=== PATIENT | female | born 1990 | race Caucasian/White ===

== ENCOUNTER 2016-06-18 20:47 | Emergency (ER) | payer OTHER ==
--- NOTE | 2016-06-18 22:44 | EDDOCDS ---
Physician Documentation [facility] Name: Adelia Webster Age: 25 yrs Sex: Female : 1990 Arrival Date: 06/18/2016 Time: 20:47 Bed U3 Private MD: Disposition: 06/18/16 22:08 Discharged to Home/Self Care. Impression: Acute stress reaction, Problems related to social environment. - Condition is Stable. - Medication Reconciliation, Local Pharmacy Hours form. - Follow up: Referral list, As provided by PFS; When: Call to arrange an appointment; Reason: Continuance of care. - Problem is an ongoing problem. - Symptoms have improved. Historical: - Allergies: No known drug Allergies; - Home Meds: 1. Wellbutrin Unknown Oral 1 tab 2 times per day 2. Zoloft Unknown Oral 1 tab twice a day - PMHx: Bipolar disorder; Anxiety; Depression; - PSHx: ; eye; - Social history: Smoking status: Patient uses tobacco products, heavy tobacco smoker. Patient uses street drugs, marijuana, No barriers to communication noted, The patient speaks fluent Iranian. - Family history: Not pertinent. - : The pt / caregiver states he / she is not on anticoagulants. Home medication list is obtained from the patient. - Exposure Risk Screening:: None identified. 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 2 in. (157.48 cm) (R); Pain 0/10; 22:40 BP 121 / 80; Pulse 104; Resp 20; Temp 97.8; Pulse Ox 100% ; Pain 0/10; mlc 20:55 Body Mass Index 21.95 (54.43 kg, 157.48 cm) rw1 MDM: 22:26 PSA Outpatient Referrals was scanned into [employer] and attached to record. eileen 22:26 [facility] Legal paperwork was scanned into [employer] and attached to record. eileen Signatures: Brock Spence DO DO cs11 Feliz Hooper RN RN jmb Macias,Margaret,RN RN mlc MTDD
--- NOTE | 2016-06-18 22:45 | EDDOCDS ---
Nurse's Notes [facility] Name: Adelia Webster Age: 25 yrs Sex: Female : 1990 Arrival Date: 06/18/2016 Time: 20:47 Bed [facility] Private MD: Diagnosis: Acute stress reaction;Problems related to social environment Presentation: 06/18 20:57 Presenting complaint: Patient states: pt states she was having an argument with her [facility] fiance and make a remark that she wanted to jump off a bridge. pt states this was out of anger, denies feeling SI. pt states she has severe bipolar and depression. Mental Health Triage Level: Level 2: The patient was brought to the ED for evaluation because of a legal pickup order. Adult Sepsis Screening: The patient does not have new or worsening altered mentation. Patient's respiratory rate is less than 22. Systolic blood pressure is greater than 100. Patient has a qSOFA score of 0- Negative Sepsis Screen. Suicide/Homicide risk assessment- Patient denies SI and HI but presents with another emotional, behavioral or other mental health complaint. The patient reports that he/she lacks adequate social support. Status: Patient is not a elevator serviceman or dependent. Transition of care: patient was not received from another setting of care. 20:57 Acuity: LASHON Level 3 [facility] 20:57 Method Of Arrival: Ambulance [facility] Triage Assessment: 21:00 General: Appears in no apparent distress, comfortable, Behavior is appropriate for age, mlc cooperative. Pain: Denies pain. HIV screening NA for this visit Offered previously. The patient is triaged at the bedside. See Assessment in Nurses Notes section of ED record. Neurological: Level of Consciousness is awake, alert, Oriented to person, place, time. Cardiovascular: Capillary refill < 3 seconds Heart tones S1 S2 present. Respiratory: Airway is patent Respiratory effort is even, unlabored, Respiratory pattern is regular, Breath sounds are clear bilaterally. GI: Abdomen is non- distended Bowel sounds present X 4 quads. Abd is soft and non tender X 4 quads. Derm: Skin is normal. 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 Wellbutrin Unknown Oral 1 tab 2 times per day 2. Zoloft Unknown Oral 1 tab twice a day - PMHx: Bipolar disorder; Anxiety; Depression; - PSHx: ; eye; - Social history: Smoking status: Patient uses tobacco products, heavy tobacco smoker. Patient uses street drugs, marijuana, No barriers to communication noted, The patient speaks fluent Greek. - Family history: Not pertinent. - : The pt / caregiver states he / she is not on anticoagulants. Home medication list is obtained from the patient. - Exposure Risk Screening:: None identified. Screenin:01 Screening information is obtained from the patient. Fall risk: No risks identified. mlc Assistance ADL's: requires no assistance with activities of daily living. Abuse/DV Screen: The patient / caregiver reports he/she is: not in a situation that causes fear, pain or injury. Nutritional screening: No deficits noted. Advance Directives: Currently, there is no health care proxy. There is no Power of Automation Lead. home support is inadequate. Assessment: 21:01 General: see triage assessment. mlc 22:40 General: Appears in no apparent distress, comfortable, Behavior is cooperative. Pain: mlc Denies pain. Neurological: Level of Consciousness is awake, alert, Oriented to person, place, time. Respiratory: Airway is patent Respiratory effort is even, unlabored, Respiratory pattern is regular. Derm: Skin is pink, warm & dry. Mental Health Eval: 22:01 Status: The patient is not a elevator serviceman or dependent. [facility] Behavioral Health: The patient is not an established patient of [facility] Behavioral Health. Referral Information: Evaluation referral is generated by a police agency: 9.41 [employer] Officer Jet chavez #[id number]. The patient was referred for evaluation because PT made a statement to self harm. Subjective: The patients chief complaint is Per PT she has hx of Bipolar with one admission after a suicide attempt in 2008. PT currently denying SI/HI or hallucinations. PT states that [employer] she had an argument with her fiance of 5 months about wanting to visit her sister. PT admits she stated "I will jump off a bridge" but denies that she meant it. PT states when very angry she will threaten to harm herself and has done it for years. PT is frustrated that someone overheard the argument and called 911. Stated stressor is her 4 year old daughter is in the custody of the father and that they reside in [place]. PT claims the father violates their custody agreement and she has not seen her daughter since November.Currently PT is not in treatment for Bipolar but states "Someone referred me to mental health but I had to cancel that appointment and no one has called me back" PT believes she is referring [facility] Outpatient but unable to verify in her records. PT's hyun interviewed separately (Suleiman Xavier) and he confirms PT's version of events and states he is trying to talk to her about not threatening to harm herself when angry. Hyun has known PT for about 2 years and has not know her to harm herself or attempt suicide and he wants to take her back home. . Delusions are denied. Patient's mood is irritable, Hallucinations are denied. Mental Health history: anxiety, Bipolar Disorder, depression, abusing marijuana. suicide PT threatens to harm herself when angry Mental Health Admissions: [facility] [place] Current Outpatient Mental Health Services: None. Current living environment is The patient currently lives with his / her significant other, hyun Xavier. Patient presents to Emergency Department with the following symptoms within the past 2 weeks: agitation, labile mood, poor impulse control, relational problem, suicidal ideation with plan for jumping off a structure. Substance abuse: Patient uses marijuana whenever possible Patient uses tobacco 1 pack Frequency daily. Mental status exam: Patients appearance is appropriate, Patient's behavior is superficially cooperative Speech is normal. Affect is appropriate. Mood is irritable. Hallucinations are denied. Appetite is normal. Memory is good. Energy level is normal. Content of thought is normal. Thought process is intact. Cognitive level is oriented to person, place, time and situation Patient's insight is fair. Judgement is fair. Rapport with interviewer is good. Suicidal Ideation is denied. Homicidal ideation is denied. Disposition: Medically cleared for disposition by Brock Spence DO Psychiatric Consult is deferred per ED physician, Dr Spence. The patient has a safe destination which is return to her home. [facility] Admission Criteria: Not Applicable. DSM-V Differential Diagnosis: Bipolar I Disorder (F31.0) Current or most recent episode unspecified (F31.9). Narrative: PT provided with referral information. Encouraged her to utilize the walk in hours at [facility] for an intake. Vital Signs: 20:55 BP 117 / 80; Pulse 98; Resp 16; Temp 98.1(TE); Pulse Ox 100% on R/A; Weight 54.43 kg rw1 (R); Height 5 ft. 2 in. (157.48 cm) (R); Pain 0/10; 22:40 BP 121 / 80; Pulse 104; Resp 20; Temp 97.8; Pulse Ox 100% ; Pain 0/10; mlc 20:55 Body Mass Index 21.95 (54.43 kg, 157.48 cm) rw1 Vitals: 20:55 Log In time N/A- police car arrival. rw1 ED Course: 20:54 Patient visited by Amanda Pink. gjb 20:54 Patient moved to Waiting gjb 20:55 Brock Spence DO is Attending Physician. cs11 20:55 Patient visited by Brock Spence DO. cs11 20:55 Patient moved to [facility] ajs 20:55 Pt greeted and oriented to ED. Patient advised of names of staff involved in care, ajs location of call [place], wait times and NPO status. Placed in psych safe attire. Property removed, inventory done. 20:56 Patient visited by Chica Jordan. ajs 20:59 Triage Initiated mlc 21:02 Patient visited by Margaret Macias RN. mlc 21:05 Patient visited by Eric Allison. tr 21:29 Patient visited by Eric Allison. tr 21:46 Patient visited by Eric Allison. tr 21:58 Patient visited by Eric Allison. tr 22:08 Referral list, As provided by [facility] is Referral Physician. cs11 22:26 PSA Outpatient Referrals was scanned into [employer] and attached to record. [facility] 22:26 E Legal paperwork was scanned into [employer] and attached to record. jmb 22:34 Patient visited by Eric Allison. tr 22:40 The patient / caregiver is instructed regarding the plan of care and ED course. mlc 22:40 No IV's were initiated during this patient's visit. No procedures done that require mlc assistance. Attachments: 22:26 [facility] Legal paperwork [facility] Order Results: There are currently no results for this order. Outcome: 22:08 Discharge ordered by Provider. cs11 22:40 Discharge Assessment: Patient awake, alert and oriented x 3. No cognitive and/or mlc functional deficits noted. Patient verbalized understanding of disposition instructions. patient administered narcotics - no. The following High Risk Discharge criteria are identified: None. Discharged to home with significant other. Condition: good Condition: stable. Discharge instructions given to patient, Instructed on discharge instructions, Demonstrated understanding of instructions, Pt was receptive of discharge instructions/ teaching. No special radiology studies were completed. Property sent home with patient. 22:42 Patient left the ED. [facility] Signatures: Eric Allison Robert, LPN LPN rw1 Marnie Myers, BARBARA PSA Chica Espinal Craig, DO DO cs11 Feliz Hooper,RN RN Margaret Tejada,RN RN Amanda Maldonado MTDRafael
--- NOTE | 2016-06-20 23:44 | EDDOCDS ---
Physician Documentation [facility] Name: Adelia Webster Age: 25 yrs Sex: Female : 1990 Arrival Date: 06/18/2016 Time: 20:47 Bed U3 Private MD: Disposition: 06/18/16 22:08 Discharged to Home/Self Care. Impression: Acute stress reaction, Problems related to social environment. - Condition is Stable. - Medication Reconciliation, Local Pharmacy Hours form. - Follow up: Referral list, As provided by PFS; When: Call to arrange an appointment; Reason: Continuance of care. - Problem is an ongoing problem. - Symptoms have improved. Historical: - Allergies: No known drug Allergies; - Home Meds: 1. Wellbutrin Unknown Oral 1 tab 2 times per day 2. Zoloft Unknown Oral 1 tab twice a day - PMHx: Bipolar disorder; Anxiety; Depression; - PSHx: ; eye; - Social history: Smoking status: Patient uses tobacco products, heavy tobacco smoker. Patient uses street drugs, marijuana, No barriers to communication noted, The patient speaks fluent Danish. - Family history: Not pertinent. - : The pt / caregiver states he / she is not on anticoagulants. Home medication list is obtained from the patient. - Exposure Risk Screening:: None identified. 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 2 in. (157.48 cm) (R); Pain 0/10; 22:40 BP 121 / 80; Pulse 104; Resp 20; Temp 97.8; Pulse Ox 100% ; Pain 0/10; mlc 20:55 Body Mass Index 21.95 (54.43 kg, 157.48 cm) rw1 MDM: 22:26 PSA Outpatient Referrals was scanned into [employer] and attached to record. eileen : [facility] Legal paperwork was scanned into [employer] and attached to record. eileen 06/19 11:39 T-Sheet-- Draft Copy was scanned into [employer] and attached to record. gb Signatures: Evelyne Collins, Reg Reg gb Brock Spence DO DO cs11 Feliz Hooper,RN RN jmb Margaret Macias,RN RN mlc The chart was reviewed and I authenticate all verbal orders and agree with the evaluation and treatment provided.Attachments: 06/19 11:39 T-Sheet-- Draft Copy gb Chart Complete MTDD
--- NOTE | 2016-06-20 23:44 | EDDOCDS ---
Physician Documentation [facility] Name: Adelia Webster Age: 25 yrs Sex: Female : 1990 Arrival Date: 06/18/2016 Time: 20:47 Bed U3 Private MD: Disposition: 06/18/16 22:08 Discharged to Home/Self Care. Impression: Acute stress reaction, Problems related to social environment. - Condition is Stable. - Medication Reconciliation, Local Pharmacy Hours form. - Follow up: Referral list, As provided by PFS; When: Call to arrange an appointment; Reason: Continuance of care. - Problem is an ongoing problem. - Symptoms have improved. Historical: - Allergies: No known drug Allergies; - Home Meds: 1. Wellbutrin Unknown Oral 1 tab 2 times per day 2. Zoloft Unknown Oral 1 tab twice a day - PMHx: Bipolar disorder; Anxiety; Depression; - PSHx: ; eye; - Social history: Smoking status: Patient uses tobacco products, heavy tobacco smoker. Patient uses street drugs, marijuana, No barriers to communication noted, The patient speaks fluent Chinese. - Family history: Not pertinent. - : The pt / caregiver states he / she is not on anticoagulants. Home medication list is obtained from the patient. - Exposure Risk Screening:: None identified. 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 2 in. (157.48 cm) (R); Pain 0/10; 22:40 BP 121 / 80; Pulse 104; Resp 20; Temp 97.8; Pulse Ox 100% ; Pain 0/10; mlc 20:55 Body Mass Index 21.95 (54.43 kg, 157.48 cm) rw1 MDM: 22:26 PSA Outpatient Referrals was scanned into [employer] and attached to record. eileen : [facility] Legal paperwork was scanned into [employer] and attached to record. eileen 06/19 11:39 T-Sheet-- Draft Copy was scanned into [employer] and attached to record. gb Signatures: Evelyne Collins, Reg Reg gb Brock Spence DO DO cs11 Feliz Hooper,RN RN jmb Margaret Macias,RN RN mlc The chart was reviewed and I authenticate all verbal orders and agree with the evaluation and treatment provided.Attachments: 06/19 11:39 T-Sheet-- Draft Copy gb Chart Complete MTDD
--- NOTE | 2016-06-20 23:44 | EDDOCDS ---
Nurse's Notes [facility] Name: Adelia Webster Age: 25 yrs Sex: Female : 1990 Arrival Date: 06/18/2016 Time: 20:47 Bed [facility] Private MD: Diagnosis: Acute stress reaction;Problems related to social environment Presentation: 06/18 20:57 Presenting complaint: Patient states: pt states she was having an argument with her [facility] fiance and make a remark that she wanted to jump off a bridge. pt states this was out of anger, denies feeling SI. pt states she has severe bipolar and depression. Mental Health Triage Level: Level 2: The patient was brought to the ED for evaluation because of a legal pickup order. Adult Sepsis Screening: The patient does not have new or worsening altered mentation. Patient's respiratory rate is less than 22. Systolic blood pressure is greater than 100. Patient has a qSOFA score of 0- Negative Sepsis Screen. Suicide/Homicide risk assessment- Patient denies SI and HI but presents with another emotional, behavioral or other mental health complaint. The patient reports that he/she lacks adequate social support. Status: Patient is not a food services coordinator or dependent. Transition of care: patient was not received from another setting of care. 20:57 Acuity: LASHON Level 3 [facility] 20:57 Method Of Arrival: Ambulance [facility] Triage Assessment: 21:00 General: Appears in no apparent distress, comfortable, Behavior is appropriate for age, mlc cooperative. Pain: Denies pain. HIV screening NA for this visit Offered previously. The patient is triaged at the bedside. See Assessment in Nurses Notes section of ED record. Neurological: Level of Consciousness is awake, alert, Oriented to person, place, time. Cardiovascular: Capillary refill < 3 seconds Heart tones S1 S2 present. Respiratory: Airway is patent Respiratory effort is even, unlabored, Respiratory pattern is regular, Breath sounds are clear bilaterally. GI: Abdomen is non- distended Bowel sounds present X 4 quads. Abd is soft and non tender X 4 quads. Derm: Skin is normal. 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 Wellbutrin Unknown Oral 1 tab 2 times per day 2. Zoloft Unknown Oral 1 tab twice a day - PMHx: Bipolar disorder; Anxiety; Depression; - PSHx: ; eye; - Social history: Smoking status: Patient uses tobacco products, heavy tobacco smoker. Patient uses street drugs, marijuana, No barriers to communication noted, The patient speaks fluent Pashto. - Family history: Not pertinent. - : The pt / caregiver states he / she is not on anticoagulants. Home medication list is obtained from the patient. - Exposure Risk Screening:: None identified. Screenin:01 Screening information is obtained from the patient. Fall risk: No risks identified. mlc Assistance ADL's: requires no assistance with activities of daily living. Abuse/DV Screen: The patient / caregiver reports he/she is: not in a situation that causes fear, pain or injury. Nutritional screening: No deficits noted. Advance Directives: Currently, there is no health care proxy. There is no Power of Mop Worker. home support is inadequate. Assessment: 21:01 General: see triage assessment. mlc 22:40 General: Appears in no apparent distress, comfortable, Behavior is cooperative. Pain: mlc Denies pain. Neurological: Level of Consciousness is awake, alert, Oriented to person, place, time. Respiratory: Airway is patent Respiratory effort is even, unlabored, Respiratory pattern is regular. Derm: Skin is pink, warm & dry. Mental Health Eval: 22:01 Status: The patient is not a food services coordinator or dependent. [facility]: The patient is not an established patient of [facility] Behavioral Health. Referral Information: Evaluation referral is generated by a police agency: 9.41 [employer] Officer Jet chavez #[id number]. The patient was referred for evaluation because PT made a statement to self harm. Subjective: The patients chief complaint is Per PT she has hx of Bipolar with one admission after a suicide attempt in 2008. PT currently denying SI/HI or hallucinations. 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 PT admits she stated "I will jump off a bridge" but denies that she meant it. PT states when very angry she will threaten to harm herself and has done it for years. PT is frustrated that someone overheard the argument and called 911. Stated stressor is her 4 year old daughter is in the custody of the father and that they reside in [place]. PT claims the father violates their custody agreement and she has not seen her daughter since November.Currently PT is not in treatment for Bipolar but states "Someone referred me to mental health but I had to cancel that appointment and no one has called me back" PT believes she is referring [facility] Outpatient but unable to verify in her records. PT's hyun interviewed separately (Suleiman Xavier) and he confirms PT's version of events and states he is trying to talk to her about not threatening to harm herself when angry. Hyun has known PT for about 2 years and has not know her to harm herself or attempt suicide and he wants to take her back home. . Delusions are denied. Patient's mood is irritable, Hallucinations are denied. Mental Health history: anxiety, Bipolar Disorder, depression, abusing marijuana. suicide PT threatens to harm herself when angry Mental Health Admissions: [facility] [place] Current Outpatient Mental Health Services: None. Current living environment is The patient currently lives with his / her significant other, hyun Xavier. Patient presents to Emergency Department with the following symptoms within the past 2 weeks: agitation, labile mood, poor impulse control, relational problem, suicidal ideation with plan for jumping off a structure. Substance abuse: Patient uses marijuana whenever possible Patient uses tobacco 1 pack Frequency daily. Mental status exam: Patients appearance is appropriate, Patient's behavior is superficially cooperative Speech is normal. Affect is appropriate. Mood is irritable. Hallucinations are denied. Appetite is normal. Memory is good. Energy level is normal. Content of thought is normal. Thought process is intact. Cognitive level is oriented to person, place, time and situation Patient's insight is fair. Judgement is fair. Rapport with interviewer is good. Suicidal Ideation is denied. Homicidal ideation is denied. Disposition: Medically cleared for disposition by Brock Spence DO Psychiatric Consult is deferred per ED physician, Dr Spence. The patient has a safe destination which is return to her home. [facility] Admission Criteria: Not Applicable. DSM-V Differential Diagnosis: Bipolar I Disorder (F31.0) Current or most recent episode unspecified (F31.9). Narrative: PT provided with referral information. Encouraged her to utilize the walk in hours at [facility] for an intake. Vital Signs: 20:55 BP 117 / 80; Pulse 98; Resp 16; Temp 98.1(TE); Pulse Ox 100% on R/A; Weight 54.43 kg rw1 (R); Height 5 ft. 2 in. (157.48 cm) (R); Pain 0/10; 22:40 BP 121 / 80; Pulse 104; Resp 20; Temp 97.8; Pulse Ox 100% ; Pain 0/10; mlc 20:55 Body Mass Index 21.95 (54.43 kg, 157.48 cm) rw1 Vitals: 20:55 Log In time N/A- police car arrival. rw1 ED Course: 20:54 Patient visited by Amanda Pink. gjb 20:54 Patient moved to Waiting gjb 20:55 Brock Spence DO is Attending Physician. cs11 20:55 Patient visited by Brock Spence DO. cs11 20:55 Patient moved to [facility] ajs 20:55 Pt greeted and oriented to ED. Patient advised of names of staff involved in care, ajs location of call [place], wait times and NPO status. Placed in psych safe attire. Property removed, inventory done. 20:56 Patient visited by Chica Jordan. ajs 20:59 Triage Initiated mlc 21:02 Patient visited by Margaret Macias RN. mlc 21:05 Patient visited by Eric Allison. tr 21:29 Patient visited by Eric Allison. tr 21:46 Patient visited by Eric Allison. tr 21:58 Patient visited by Eric Allison. tr 22:08 Referral list, As provided by [facility] is Referral Physician. cs11 22:26 PSA Outpatient Referrals was scanned into [employer] and attached to record. b 22:26 E Legal paperwork was scanned into [employer] and attached to record. jmb 22:34 Patient visited by Eric Allison. tr 22:40 The patient / caregiver is instructed regarding the plan of care and ED course. mlc 22:40 No IV's were initiated during this patient's visit. No procedures done that require mlc assistance. 06/19 11:39 T-Sheet-- Draft Copy was scanned into [employer] and attached to record. gb Attachments: 22:26 E Legal paperwork b Order Results: There are currently no results for this order. Outcome: 06/18 22:08 Discharge ordered by Provider. cs11 22:40 Discharge Assessment: Patient awake, alert and oriented x 3. No cognitive and/or mlc functional deficits noted. Patient verbalized understanding of disposition instructions. patient administered narcotics - no. The following High Risk Discharge criteria are identified: None. Discharged to home with significant other. Condition: good Condition: stable. Discharge instructions given to patient, Instructed on discharge instructions, Demonstrated understanding of instructions, Pt was receptive of discharge instructions/ teaching. No special radiology studies were completed. Property sent home with patient. 22:42 Patient left the ED. [facility] Signatures: Evelyne Collins, Celio Reg gb Keegan, Usman Bah,MILLER HEAD MILLER HEAD rw1 Marnie Myers, BARBARA PSA jfChica Mendoza Craig, DO DO cs11 Feliz HooperRN RN Margaret Tejada RN RN Amanda Maldonado Chart Complete YENNI
== END 2016-06-18 22:42 | disposition home or self-care (01) ==
LOC: M ED 20:47
DX: F43.0 Acute stress reaction (principal); F31.9 Bipolar disorder, unspecified; F41.9 Anxiety disorder, unspecified; Z79.899 Other long term (current) drug therapy; F17.200 Nicotine dependence, unspecified, uncomplicated

== ENCOUNTER 2017-01-07 19:43 | Emergency (ER) | payer OTHER ==
[2017-01-07] MEDS ORDERED: GABA-283 PO (20:17)
[2017-01-07 20:20] VITALS: BP 105/68
== END 2017-01-07 21:18 | disposition home or self-care (01) ==
LOC: EDUNIT# 19:43 → EDBD 19:43 → M ED 19:43
DX: F15.20 Other stimulant dependence, uncomplicated (principal); F41.9 Anxiety disorder, unspecified; F32.9 Major depressive disorder, single episode, unspecified; F17.210 Nicotine dependence, cigarettes, uncomplicated

== ENCOUNTER → 2018-01-04 | Outpatient (REF) | payer OTHER ==
[2018-01-04 20:16] LABS: CHLAMYDIA DNA AMPLIFICATION NEGATIVE (NEGATIVE); GC DNA AMPLIFICATION NEGATIVE (NEGATIVE)
[2018-01-11 08:14] LABS: SUMMARY SEE SEPARATE REPORT
== END ==
LOC: M SFHCPLAZ 17:08
DX: Z12.4 Encounter for screening for malignant neoplasm of cervix (principal); Z72.51 High risk heterosexual behavior; F19.90 Other psychoactive substance use, unspecified, uncomplicated

== ENCOUNTER → 2018-01-12 | Outpatient (REF) | payer OTHER ==
[2018-01-12 20:11] LABS: BASO # 0.1 10^3/uL (0.0-0.2); BASO % 0.7 % (0.0-1.0); EOS # 0.1 10^3/uL (0.0-0.50); EOS % 1.6 % (0.0-3.0); HEMATOCRIT 43.3 % (36.0-47.0); HEMOGLOBIN 13.8 g/dl (12.0-15.5); IMMATURE GRANULOCYTE % 0.3 % (0-3.0); LYMPH # 2.2 10^3/uL (1.5-6.5); LYMPH % 31.5 % (24.0-44.0); MEAN CORPUSCULAR HEMOGLOBIN 30.7 pg (27.0-33.0); MEAN CORPUSCULAR HGB CONC 31.9 g/dl (32.0-36.5); MEAN CORPUSCULAR VOLUME 96.2 fl (80.0-96.0); MONO # 0.6 10^3/uL (0.0-0.8); MONO % 8.4 % (0.0-5.0); NEUTROPHILS % 57.5 % (36.0-66.0); PLATELET COUNT, AUTOMATED 335 10^3/uL (150-450); RED CELL DISTRIBUTION WIDTH 13.8 % (11.5-14.5); WHITE BLOOD COUNT 6.9 10^3/uL (4.0-10.0)
[2018-01-12 20:20] LABS: ALBUMIN 4.3 GM/DL (3.2-5.2); ALBUMIN/GLOBULIN RATIO 1.13 (1.00-1.93); ALKALINE PHOSPHATASE 64 U/L (45-117); ALT/SGPT 214 U/L (12-78); ANION GAP 6 MEQ/L (8-16); AST/SGOT 95 U/L (7-37); BILIRUBIN,TOTAL 0.6 MG/DL (0.2-1.0); BLOOD UREA NITROGEN 8 MG/DL (7-18); CARBON DIOXIDE LEVEL 29 MEQ/L (21-32); CHLORIDE LEVEL 104 MEQ/L (98-107); CHOLESTEROL LEVEL 161 MG/DL (<200); CHOLESTEROL RISK RATIO 2.515 (<5); GLOMERULAR FILTRATION RATE > 60.0 (>60); GLUCOSE, FASTING 73 MG/DL (70-100); HDL CHOLESTEROL 64 MG/DL (>40); LDL CHOLESTEROL 84.4 MG/DL (<100); NON-HDL-C 97 MG/DL; POTASSIUM SERUM 4.7 MEQ/L (3.5-5.1); SODIUM LEVEL 139 MEQ/L (136-145); THYROID STIMULATING HORMONE 0.478 uIU/ML (0.358-3.740); TOTAL PROTEIN 8.1 GM/DL (6.4-8.2); TRIGLYCERIDES LEVEL 63 MG/DL (<150)
[2018-01-14 09:30] LABS: HEPATITIS B SURFACE ANTIBODY NEGATIVE (POSITIVE)
[2018-01-14 09:38] LABS: HEPATITIS B SURFACE ANTIGEN NEGATIVE (NEGATIVE)
[2018-01-14 09:52] LABS: HIV 1&2 SCREEN CENTAUR NEGATIVE (NEGATIVE)
[2018-01-14 10:36] LABS: HEPATITIS C VIRUS ABY INDEX > 11.0 INDEX (<0.8)
[2018-01-16 15:56] LABS: HCV RNA NAA QUALITATIVE Positive (Negative)
[2018-01-17 14:12] LABS: HEPATITIS A IgG TOTAL Positive (Negative); HEPATITIS C QUANTITATION 402510 IU/mL (.)
== END ==
LOC: M LAB REF 19:37
DX: Z00.00 Encounter for general adult medical examination without abnormal findings (principal); B18.2 Chronic viral hepatitis C; R30.0 Dysuria

== ENCOUNTER 2018-01-17 13:32 | Emergency (ER) | payer OTHER ==
[2018-01-17 15:05] LABS: BASO # 0.1 10^3/uL (0.0-0.2); BASO % 0.6 % (0.0-1.0); EOS # 0.1 10^3/uL (0.0-0.50); EOS % 1.1 % (0.0-3.0); HEMATOCRIT 40.7 % (36.0-47.0); HEMOGLOBIN 13.1 g/dl (12.0-15.5); IMMATURE GRANULOCYTE % 0.3 % (0-3.0); LYMPH % 32.6 % (24.0-44.0); MEAN CORPUSCULAR HEMOGLOBIN 30.3 pg (27.0-33.0); MEAN CORPUSCULAR HGB CONC 32.2 g/dl (32.0-36.5); MEAN CORPUSCULAR VOLUME 94.2 fl (80.0-96.0); MONO # 0.8 10^3/uL (0.0-0.8); MONO % 8.5 % (0.0-5.0); NEUTROPHILS # 5.2 10^3/uL (1.8-7.7); NEUTROPHILS % 56.9 % (36.0-66.0); PLATELET COUNT, AUTOMATED 278 10^3/uL (150-450); RED BLOOD COUNT 4.32 10^6/uL (4.00-5.40); RED CELL DISTRIBUTION WIDTH 13.8 % (11.5-14.5); WHITE BLOOD COUNT 9.1 10^3/uL (4.0-10.0)
[2018-01-17 15:11] LABS: AMORPHOUS SEDIMENT RFX SMALL (NEGATIVE); KETONE, URINE AUTO RFX NEGATIVE (NEGATIVE); LEUKOCYTE ESTERASE UR AUTO RFX NEGATIVE (NEGATIVE); NITRITE, URINE AUTO RFX NEGATIVE (NEGATIVE); RBC, URINE AUTO RFX 2 /HPF (0-3); SPECIFIC GRAVITY UR AUTO RFX 1.001 (1.002-1.035); SQUAM EPITHELIAL CELL UR AURFX 5 /HPF (0-6); WBC, URINE AUTO RFX 1 /HPF (0-3)
[2018-01-17 15:33] LABS: ALBUMIN 3.4 GM/DL (3.2-5.2); ALBUMIN/GLOBULIN RATIO 0.92 (1.00-1.93); ALKALINE PHOSPHATASE 56 U/L (45-117); ALT/SGPT 197 U/L (12-78); ANION GAP 5 MEQ/L (8-16); AST/SGOT 115 U/L (7-37); BILIRUBIN,DIRECT 0.1 MG/DL (0.0-0.2); BILIRUBIN,TOTAL 0.4 MG/DL (0.2-1.0); BLOOD UREA NITROGEN 7 MG/DL (7-18); CALCIUM LEVEL 8.6 MG/DL (8.5-10.1); CARBON DIOXIDE LEVEL 28 MEQ/L (21-32); CHLORIDE LEVEL 109 MEQ/L (98-107); CREATININE FOR GFR 0.51 MG/DL (0.55-1.30); GLOMERULAR FILTRATION RATE > 60.0 (>60); GLUCOSE, FASTING 72 MG/DL (70-100); POTASSIUM SERUM 4.1 MEQ/L (3.5-5.1); SODIUM LEVEL 142 MEQ/L (136-145); TOTAL PROTEIN 7.1 GM/DL (6.4-8.2)
== END 2018-01-17 17:10 | disposition home or self-care (01) ==
LOC: M ED 13:32
DX: B19.20 Unspecified viral hepatitis C without hepatic coma (principal); R10.30 Lower abdominal pain, unspecified; N83.292 Other ovarian cyst, left side; F41.9 Anxiety disorder, unspecified; F32.9 Major depressive disorder, single episode, unspecified; F19.10 Other psychoactive substance abuse, uncomplicated; Z79.899 Other long term (current) drug therapy; Z72.0 Tobacco use
CPT/HCPCS: 76856

== ENCOUNTER → 2018-03-08 | Outpatient (CLI) | payer OTHER ==
[2018-03-08 16:08] LABS: HEMATOCRIT 40.7 % (36.0-47.0); HEMOGLOBIN 13.2 g/dl (12.0-15.5); MEAN CORPUSCULAR HGB CONC 32.4 g/dl (32.0-36.5); MEAN CORPUSCULAR VOLUME 92.5 fl (80.0-96.0); PLATELET COUNT, AUTOMATED 338 10^3/uL (150-450); WHITE BLOOD COUNT 9.7 10^3/uL (4.0-10.0)
[2018-03-08 16:24] LABS: CONTROL LINE HCG INT CTR LINE PRESENT; HCG, SERUM QUALITATIVE NEGATIVE (NEGATIVE)
[2018-03-08 16:38] LABS: ALBUMIN 3.7 GM/DL (3.2-5.2); ALBUMIN/GLOBULIN RATIO 1.03 (1.00-1.93); ALKALINE PHOSPHATASE 54 U/L (45-117); ALT/SGPT 221 U/L (12-78); ANION GAP 6 MEQ/L (8-16); AST/SGOT 123 U/L (7-37); BILIRUBIN,TOTAL 0.3 MG/DL (0.2-1.0); BLOOD UREA NITROGEN 10 MG/DL (7-18); CALCIUM LEVEL 9.1 MG/DL (8.5-10.1); CARBON DIOXIDE LEVEL 28 MEQ/L (21-32); CHLORIDE LEVEL 106 MEQ/L (98-107); CREATININE FOR GFR 0.61 MG/DL (0.55-1.30); GLOMERULAR FILTRATION RATE > 60.0 (>60); GLUCOSE, FASTING 73 MG/DL (70-100); POTASSIUM SERUM 4.4 MEQ/L (3.5-5.1); SODIUM LEVEL 140 MEQ/L (136-145); TOTAL PROTEIN 7.3 GM/DL (6.4-8.2)
[2018-03-08 18:38] LABS: CHLAMYDIA DNA AMPLIFICATION NEGATIVE (NEGATIVE); GC DNA AMPLIFICATION NEGATIVE (NEGATIVE)
[2018-03-09 09:59] LABS: HEPATITIS B SURFACE ANTIGEN NEGATIVE (NEGATIVE)
[2018-03-09 10:25] LABS: HIV 1&2 SCREEN CENTAUR NEGATIVE (NEGATIVE)
[2018-03-09 10:37] LABS: HEPATITIS C VIRUS ABY INDEX > 11.0 INDEX (<0.8)
== END ==
LOC: M LAB 15:24
DX: F11.20 Opioid dependence, uncomplicated (principal)
CPT/HCPCS: 93005

== ENCOUNTER 2018-07-20 14:00 | Emergency (ER) | payer OTHER ==
[~2018-07-20] VITALS: Ht 157.5 cm; Wt 57.7 kg
[~2018-07-20 14:00] MED LIST: CITA20TA4; GABA-845 PO; MIRT15TA3
[2018-07-20 14:01] VITALS: BP 115/57
[2018-07-20] MEDS ORDERED: METH10TA2 PO (14:05)
[2018-07-20] MEDS ORDERED: CLON-412 PO (14:05)
[2018-07-20] MEDS ORDERED: IBUP-1114 PO (14:05)
[2018-07-20] MEDS ORDERED: PROZ10CA7 PO (14:05)
[2018-07-20] MEDS ORDERED: PENI500T PO (14:48)
== END 2018-07-20 15:01 | disposition home or self-care (01) ==
LOC: M ED 14:00
DX: K04.7 Periapical abscess without sinus (principal); Z79.899 Other long term (current) drug therapy; Z79.891 Long term (current) use of opiate analgesic; F17.210 Nicotine dependence, cigarettes, uncomplicated

== ENCOUNTER 2018-12-05 14:31 | Emergency (ER) | payer OTHER ==
[~2018-12-05] VITALS: Ht 157.5 cm; Wt 59.1 kg
[~2018-12-05 14:31] MED LIST changes: -CITA20TA4; +CITA20TA6; +CLON-412 PO; +IBUP-1114 PO; +METH10TA2 PO; +PENI500T PO; +PROZ10CA7 PO
[2018-12-05 17:26] LABS: BASO % 0.4 % (0.0-1.0); EOS % 0.5 % (0.0-3.0); HEMOGLOBIN 12.9 g/dl (12.0-15.5); LYMPH # 2.2 10^3/uL (1.5-6.5); LYMPH % 25.4 % (24.0-44.0); MEAN CORPUSCULAR HEMOGLOBIN 29.9 pg (27.0-33.0); MEAN CORPUSCULAR HGB CONC 32.3 g/dl (32.0-36.5); MEAN CORPUSCULAR VOLUME 92.8 fl (80.0-96.0); MONO # 0.5 10^3/uL (0.0-0.8); MONO % 6.1 % (0.0-5.0); NEUTROPHILS # 5.7 10^3/uL (1.8-7.7); NEUTROPHILS % 67.4 % (36.0-66.0); PLATELET COUNT, AUTOMATED 230 10^3/uL (150-450); RED BLOOD COUNT 4.31 10^6/uL (4.00-5.40); WHITE BLOOD COUNT 8.5 10^3/uL (4.0-10.0)
[2018-12-05] MEDS ORDERED: AUGM875T28 PO (18:29)
[2018-12-05] MEDS ORDERED: IBUP80TA PO (18:29)
[2018-12-05 18:42] VITALS: BP 123/69
== END 2018-12-05 18:50 | disposition home or self-care (01) ==
LOC: M ED 14:31
DX: K02.9 Dental caries, unspecified (principal); K05.10 Chronic gingivitis, plaque induced; B19.20 Unspecified viral hepatitis C without hepatic coma; F19.10 Other psychoactive substance abuse, uncomplicated; F33.9 Major depressive disorder, recurrent, unspecified; F41.9 Anxiety disorder, unspecified; Z79.899 Other long term (current) drug therapy; F17.210 Nicotine dependence, cigarettes, uncomplicated

== ENCOUNTER 2019-02-15 08:32 | Day surgery (SDC) | payer OTHER ==
[~2019-02-15] VITALS: Ht 157.5 cm; Wt 49.0 kg
[~2019-02-15 08:32] MED LIST changes: +AMPICILLIN SOD/SULBACTAM SOD 3 GM in D5W MINI-BAG PLUS 100 ML IV ONE; +AUGM875T28 PO; +CLONI1TA PO; +IBUP200C25 PO; +IBUP80TA PO; +LR 1,000 ML IV ONE; +NON-325T5 PO; +PROZ20CA11 PO; +WELL100T2 PO; +dexameTHASONE 4 MG/ML 1ML VIAL (J1100) IV ONE
[2019-02-15 08:59] LABS: URINE PREG TEST NEGATIVE (NEGATIVE)
[2019-02-15] MEDS ORDERED: LIDOCAINE 2% W/ EPINEPHRINE 1.7 ML DENTAL INJ As Ordered ONE (10:08)
[2019-02-15] MEDS ORDERED: MIDAZOLAM INJ 2 MG/2 ML VIAL (J2250) As Ordered ONE (10:11)
[2019-02-15] MEDS ORDERED: PROPOFOL 200 MG/20 ML VIAL As Ordered ONE (10:11)
[2019-02-15] MEDS ORDERED: dexameTHASONE 4 MG/ML 1ML VIAL (J1100) As Ordered ONE ×2 (10:11→10:24)
[2019-02-15] MEDS ORDERED: ONDANSETRON 4MG/2ML VIAL (J2405) As Ordered ONE (10:11)
[2019-02-15] MEDS ORDERED: LIDOCAINE 2% INJ 100 MG/5 ML SDV (FOR ANES.) As Ordered ONE (10:11)
[2019-02-15] MEDS ORDERED: fentaNYL 100 MCG/2 ML INJECTION (J3010) As Ordered ONE ×3 (10:12→12:16)
[2019-02-15] MEDS ORDERED: CHLORHEXIDINE GLUCONATE 0.12 % 15ML UDC (PERIDEX ORAL RINSE) As Ordered ONE (10:22)
[2019-02-15] MEDS ORDERED: ROCURONIUM BROMIDE 50 MG/5 ML VIAL As Ordered ONE (10:27)
[2019-02-15] MEDS ORDERED: ACETAMINOPHEN 1000MG 100ML IV BTL (OFIRMEV) (J0131 PER 10MG) As Ordered ONE (11:04)
[2019-02-15] MEDS ORDERED: SUGAMMADEX SODIUM 500 MG/5 ML VIAL (BRIDION) As Ordered ONE (11:07)
[2019-02-15] MEDS ORDERED: KETOROLAC 60 MG/2 ML VIAL (J1885) As Ordered ONE (11:09)
[2019-02-15] MEDS ORDERED: LR 1,000 ML IV SCH (12:15)
[2019-02-15] MEDS ORDERED: ONDANSETRON 4MG/2ML VIAL (J2405) IV PRN (12:15)
[2019-02-15] MEDS ORDERED: PERCOCET 5MG/325MG TAB PO PRN (12:15)
[2019-02-15] MEDS: fentaNYL 100 MCG/2 ML INJECTION (J3010) IV PRN ×4 (12:16→12:31)
[2019-02-15 13:40] VITALS: BP 112/69
--- NOTE | 2019-02-16 08:37 | RO ---
DATE OF PROCEDURE: 02/15/2019 PREOPERATIVE DIAGNOSIS: Hopeless/terminal dentition. POSTOPERATIVE DIAGNOSIS: Status post the above. PROCEDURE PERFORMED: Extraction of all remaining teeth. SURGEON: Kevon Murray DMD, MD WASTE CHOPPER: ANESTHESIA USED: General endotracheal anesthesia via nasal SHILPI. SPECIMENS: Teeth for gross only. INDICATIONS FOR SURGERY: Adelia is a pleasant 28-year-old female who was referred my office for evaluation for extraction of all of her remaining grossly decayed teeth. She does have a significant amount of dental anxiety and it was offered that would be best suited for general anesthesia in an OR setting due to her anxiety, the medications that she is on and the extent to the procedure. A complete history and physical was obtained and is in the patient's chart and informed consent was obtained and is also in the patient's chart. DESCRIPTION OF PROCEDURE: The patient was taken back to the operating room, she was laid supine on the operating room table. Ulnar nerve protectors were placed. Noninvasive cardiac monitors were applied. At that point the patient underwent general anesthesia and was intubated a nasal SHILPI. She was then prepped and draped in the usual sterile fashion. A time out procedure was performed to identify the patient, the procedure and any other precautions. Preoperative antibiotics were administered in the IV. Moist throat pack was inserted in the patient's oropharynx followed by the administration of 10 carpules of 2% lidocaine with 1:100,000 epinephrine. A full-thickness flap was raised from tooth number [address] to tooth number 16 into the sulcus. The flap was fully reflected. Buccal bone was removed from teeth areas numbers 1, 2, 3, 4, 5, 6, 11, 12, 13, 14, 15 and 16. At this point, an elevator was used to elevate teeth numbers 1, 2, 3, 4, 5, 6, 7, 8, 9, 10, 11, 12, 13, 14, 15 and 16 and forceps were then used to deliver all of the aforementioned teeth. All the sockets were copiously irrigated and suctioned. No sinus exposure was noted. Alveoloplasty was performed in both quadrants to remove any sharp areas and any undercuts. A running and interrupted #3-0 chromic sutures were placed for primary closure. At this point, attention was then given to the lower arch where a full-thickness flap was released from number [address] to number 32 area. Flap was fully reflected. Buccal bone was then removed from areas number 17, 18, 19, 20, 21, 22, 27, 28, 29, 30, 31 and 32. All the teeth were then luxated and delivered and forceps were then used to remove the teeth, except tooth number 31 which was missing. At this point, all the sockets were copiously irrigated and suctioned. Alveoloplasty was performed in the lower left and lower right quadrants to eliminate any sharp bony areas and undercuts. The flaps were then closed with interrupted and continuous #3-0 chromic sutures. At this point, the oral cavity was irrigated and suctioned. Gauze hemostasis was easily achieved. The oral cavity was irrigated and suctioned as I mentioned. Throat pack was removed. The patient was then awakened and taken back to the postanesthesia care unit (PACU). COMPLICATIONS: None to mention at the time of surgery. ESTIMATED BLOOD LOSS: 50 mL. DRAINS: There were no drains placed.
== END 2019-02-15 14:05 | disposition home or self-care (01) ==
LOC: M SDC 08:32
PROVIDERS: ATTEND Dentist
DX: K02.9 Dental caries, unspecified (principal); B18.2 Chronic viral hepatitis C; F31.9 Bipolar disorder, unspecified; F17.210 Nicotine dependence, cigarettes, uncomplicated; F32.9 Major depressive disorder, single episode, unspecified
CPT/HCPCS: 84703; 88300; D7210; D7310; D9223; J0131; J1100; J1885; J2250; J2405; J3010

== ENCOUNTER 2019-05-16 22:51 | Emergency (ER) | payer OTHER ==
[~2019-05-16] VITALS: Ht 157.5 cm; Wt 59.1 kg
[~2019-05-16 22:51] MED LIST changes: -AMPICILLIN SOD/SULBACTAM SOD 3 GM in D5W MINI-BAG PLUS 100 ML IV ONE; -LR 1,000 ML IV ONE; -dexameTHASONE 4 MG/ML 1ML VIAL (J1100) IV ONE
[2019-05-16 23:25] LABS: HEMATOCRIT 41.3 % (36.0-47.0); HEMOGLOBIN 13.3 g/dl (12.0-15.5); MEAN CORPUSCULAR HEMOGLOBIN 29.8 pg (27.0-33.0); MEAN CORPUSCULAR HGB CONC 32.2 g/dl (32.0-36.5); MEAN CORPUSCULAR VOLUME 92.6 fl (80.0-96.0); PLATELET COUNT, AUTOMATED 288 10^3/uL (150-450); RED BLOOD COUNT 4.46 10^6/uL (4.00-5.40); WHITE BLOOD COUNT 11.7 10^3/uL (4.0-10.0)
[2019-05-16 23:58] LABS: AMPHETAMINES LEVEL URINE NEGATIVE (NEGATIVE); BARBITURATES URINE NEGATIVE (NEGATIVE); BENZODIAZEPINES URINE NEGATIVE (NEGATIVE); CANNABINOIDS URINE POSITIVE (NEGATIVE); COCAINE METABOLITE URINE NEGATIVE (NEGATIVE); METHADONE URINE NEGATIVE (NEGATIVE); OPIATES URINE NEGATIVE (NEGATIVE); PHENCYCLIDINE URINE NEGATIVE (NEGATIVE)
[2019-05-17] LABS: ACETAMINOPHEN LEVEL < 2.0 UG/ML (10.0-30.0); ALBUMIN 3.7 GM/DL (3.2-5.2); ALT/SGPT 74 U/L (12-78); BILIRUBIN,DIRECT < 0.1 MG/DL (0.0-0.2); BILIRUBIN,TOTAL 0.2 MG/DL (0.2-1.0); BLOOD UREA NITROGEN 6 MG/DL (7-18); CALCIUM LEVEL 8.4 MG/DL (8.5-10.1); CARBON DIOXIDE LEVEL 21 MEQ/L (21-32); CHLORIDE LEVEL 113 MEQ/L (98-107); ETHYL ALCOHOL (ETHANOL) 0.255 % (0.000-0.010); GLOMERULAR FILTRATION RATE > 60.0 (>60); GLUCOSE, FASTING 104 MG/DL (70-100); POTASSIUM SERUM 3.8 MEQ/L (3.5-5.1); SALICYLATE LEVEL < 1.7 MG/DL (5.0-30.0); SODIUM LEVEL 145 MEQ/L (136-145); TOTAL PROTEIN 7.3 GM/DL (6.4-8.2)
[2019-05-17 00:05] LABS: HCG, SERUM QUALITATIVE NEGATIVE (NEGATIVE)
[2019-05-17 08:59] VITALS: BP 123/70
== END 2019-05-17 09:01 | disposition home or self-care (01) ==
LOC: M ED 22:51
DX: F10.120 Alcohol abuse with intoxication, uncomplicated (principal); Z63.79 Other stressful life events affecting family and household; F19.10 Other psychoactive substance abuse, uncomplicated; F31.9 Bipolar disorder, unspecified; Z79.899 Other long term (current) drug therapy
CPT/HCPCS: 80048; 80076; 80307; 84443; 84703; 85027; 99284; G0480